=== PATIENT | male | born 1975 | race Caucasian/White ===

== ENCOUNTER 2023-01-27 08:54 | Outpatient (RCR) | payer OTHER, SELFPAY ==
[2023-01-27 09:35] LABS: Creatinine* 0.9 mg/dL (0.5-1.5); Est. Creatinine Clearance* 102.52; Estimated Glomerular Filt Rate 105 ml/min
== END 2023-07-26 23:59 | disposition home or self-care (01) ==
LOC: CCIC 08:54
PROVIDERS: Visit Provider Internal Medicine
DX: C25.9 Malignant neoplasm of pancreas, unspecified (principal)
CPT/HCPCS: 36415; 82565; 99211